=== PATIENT | male | born 1980 | race Caucasian/White ===

== ENCOUNTER 2016-04-13 00:15 | Emergency (ER) | payer OTHER ==
[~2016-04-13] VITALS: Ht 175.3 cm; Wt 61.4 kg
[~2016-04-13 00:15] MED LIST: HYDR-4003 PO; ONDA4TAB9 PO; TAMS0.4C98 PO
[2016-04-13 00:18] VITALS: BP 116/74; PULSE 82; RESP 16; O2SAT 97
--- NOTE | 2016-04-13 00:44 | ED.REPORT ---
HPI-General Illness Date of Service Apr 13, 2016 ED Provider: Dr. Frausto Pt is a 35 y/o male w/ a hx of asthma presenting to the ED c/o SOB onset 3 days ago. Pt c/o associated fever (102-103 F), nausea, cough, myalgias, nasal congestion, sore throat. Pt denies vomiting. 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 The patient smokes cigars daily. Nursing Notes Stated Complaint: SHORT OF BREATH Chief Complaint: General Complaint Nursing Notes Reviewed: Yes Allergies: Uncoded Allergies: PENICILLIN (Allergy, Severe, Anaphylaxis, 04/13/16) Scheduled Prednisone (PredniSONE) 20 Mg Tablet 60 MG PO DAILY Tamsulosin (Flomax) 0.4 Mg Capsule 0.4 MG PO DAILY Scheduled PRN Hydrocodone-Acetaminophen 5-325 mg (Hydrocodone-Acetaminophen 5-325 mg) 1 Each Tablet 1-2 TABLET PO Q4H PRN PRN For Pain Hydrocodone-Acetaminophen 5-325 mg (Hydrocodone-Acetaminophen 5-325 mg) 1 Each Tablet 1-2 TABLET PO Q4H PRN PRN For Pain Ondansetron ODT (Zofran ODT) 4 Mg Tablet 4 MG PO Q4H PRN PRN For Nausea General Time Seen by MD: 00:44 Chief Complaint Other (SOB) Hx Obtained From: Patient Arrived By: Walk-in Sudden in Onset?: No Onset Occurred: 3 days ago Symptom Duration: Since onset Quality: Aching (diffuse) Severity: Current: Mild Severity: Maximum: Mild Recent Healthcare: No recent doctor visit Similar Sx Previous: No Past Medical History Past Medical History Hx of kidney stones Asthma Past Surgical History denies Smoking History Current Every Day Smoker Social History Alcohol Use: "Social" Drug Use: THC Other Social History: Local resident Occupation no work, no school, lives with sister and her family Ambulatory Status Independent Review of Systems Full Review of Systems Constitutional: Reports: Chills, Fever Ears / Nose / Throat: Reports: Nasal congestion, Sore throat Respiratory: Reports: Non-productive cough, Shortness of breath, Wheezing Cardiovascular: Denies: Chest pain GI: Reports: Nausea, Denies: Abdominal pain, Vomiting Musculoskeletal: Reports: Myalgia Complete sys rev & neg: except as marked. Physical Exam Vital Signs Vital Signs Date Time Temp Pulse Resp B/P Pulse Ox O2 Delivery O2 Flow Rate FiO2 04/13/16 02:05 86 24 95 Room Air 04/13/16 01:24 65 22 96 Room Air 04/13/16 00:18 36.1 82 16 116/74 97 Room Air Initial VS: Reviewed, Vital signs normal Head / Eyes: Atraumatic, Normocephalic, PERRL Neck: Supple, Full range of motion Cardiovascular: Regular rate & rhythm, Heart sounds normal, Intact distal pulses Abdomen / GI: Soft, Non-tender Extremities: Vascular intact, Neuro intact, No swelling, No tenderness Skin: Warm, Dry, No cyanosis Neurologic: Alert, Oriented, Nonfocal Psychiatric: Mood/affect normal, Behavior normal, Normal thought content General/Constitutional: Awake, Alert, No acute distress, Cooperative, Not toxic appearing Appearance / Presentation: Positive: Ill appearing/not toxic Respiratory / Chest: Atraumatic, No respiratory distress, No retractions, No stridor, No chest tenderness, No chest wall deformity, No crepitus Wheezes bilaterally Loose cough Interpretation & Diagnostics X-Ray Chest Interpretation Chest Xray Interpretation: Changes of COPD View: Portable, 1 view Interpretation / Wet Read by: Wet read ED physician NL X-Ray Chest Findings: No infiltrate, No acute disease Re-Eval/Medical Decision Med Decision/Clinical Course 35-year-old smoker presents with asthma symptoms, five years since his last exacerbation. He is continuing to smoke the meantime, and works as a welder fitter gas. He does not observe precautions and is not infrequently inhaling metal smoke. He has moderate wheezes and onset appears to be the result of an influenza infection. No indication for antibiotics. Home with prednisone, albuterol puffer and spacer, and plan for follow-up with PCP. Smoking cessation strongly advised. Observation of job related precautions also strongly advised. Time of Eval: 01:46 Patient Status: Condition improved, Moderate relief Re-Evaluation/Progress Note: Pt rechecked. Wheezing decreased. Informed pt of plan for treatment. Pt understands and agrees with plan for treatment. F/U instructions and RTER warnings given. All questions addressed. Counseled Regarding: Diagnosis, Lab results, Need for follow-up, When/why to return to ED Discharge & Departure Primary Impression: Asthma exacerbation Additional Impressions: Chronic obstructive pulmonary disease COPD type: unspecified COPD Qualified Code: J44.9 - Chronic obstructive pulmonary disease, unspecified Influenza Disposition: Home Discharge Condition All VS Reviewed: Yes Condition: Stable Patient Instructions: Asthma (ED), Chronic Obstructive Pulmonary Disease (ED), Influenza (ED) Additional Instructions: You are developing fairly obvious changes in your lungs consistent with damage from smoking. It is critical that you stop smoking as soon as possible. It is also important that you observe all precautions at work, and avoid breathing metal smoke. Begin albuterol two puffs with spacer every four hours as needed for wheezing and cough. Begin prednisone three tablets daily for five days. Follow-up with your doctor in the office. Return if worsening despite treatment. [facility] ([facility]P) Scribe Attestation Portions of this note were transcribed by Mj Fernandez. I, Dr. Frausto personally performed the history, physical exam and medical decision-making; I reviewed and confirmed the accuracy of the information in the transcribed note. Signed by Matheus Correia, 04/13/16 - [id number] copies to: [facility] A[facility] CESPEDES Christopher W MD Apr 13, 2016 00:44 MJ FERNANDEZ Apr 13, 2016 00:45
[2016-04-13] MEDS ORDERED: Albuterol 2.5 mg/3 mL Inhalation Solution NEB ONE (01:00)
[2016-04-13] MEDS ORDERED: Albuterol-Ipratropium 3 mL Inhalation Solution NEB ONE (01:00)
[2016-04-13] MEDS ORDERED: predniSONE 20 mg Tablet PO ONE (01:00)
[2016-04-13] MEDS ORDERED: _Albuterol-HFA 60 Puff Inhaler INHALATION PRN (01:00)
[2016-04-13 01:24] VITALS: PULSE 65; RESP 22; O2SAT 96
[2016-04-13] MEDS ORDERED: PRE20 PO (01:41)
[2016-04-13 02:05] VITALS: PULSE 86; RESP 24; O2SAT 95
--- NOTE | 2016-04-13 09:16 | DRSVH ---
PROCEDURE: X-RAY CHEST, TWO VIEWS ([id number]) INDICATIONS: cough, asthma TECHNIQUE: 2 views of the chest were acquired. COMPARISON: [facility], CR, CHEST 2VW, 01/08/2014, 14:36. FINDINGS: Surgical changes and devices: None. Lungs and pleura: No pleural effusions or pneumothorax. Lungs are clear. Mediastinum: Mediastinal contours are normal. Heart size is normal. Bones and chest wall: No suspicious bony abnormalities. Soft tissues appear unremarkable. IMPRESSION: No acute cardiopulmonary disease. Dictated by: Lorenzo Ellison [facility] Interpreted: Jenna Dwyer MD on 04/13/2016 at 9:15 Transcribed by: SREEKANTH on 04/13/2016 at 9:15 Approved by: Jenna Dwyer MD, PhD on 04/13/2016 at 11:47
== END 2016-04-13 02:06 | disposition home or self-care (01) ==
LOC: SED 00:15
DX: J45.901 Unspecified asthma with (acute) exacerbation (principal); J44.9 Chronic obstructive pulmonary disease, unspecified; J10.1 Influenza due to other identified influenza virus with other respiratory manifestations; F17.290 Nicotine dependence, other tobacco product, uncomplicated; F12.10 Cannabis abuse, uncomplicated; Z88.0 Allergy status to penicillin
CPT/HCPCS: 71020; 99284; J7613; J7620

== ENCOUNTER 2016-06-18 22:00 | Emergency (ER) | payer OTHER ==
[~2016-06-18] VITALS: Ht 172.7 cm; Wt 61.4 kg
[~2016-06-18 22:00] MED LIST changes: +PRE20 PO
[2016-06-18 22:16] VITALS: BP 124/74; PULSE 79; RESP 16; O2SAT 97
--- NOTE | 2016-06-18 22:25 | ED.REPORT ---
HPI-Extremity Problem Upper Date of Service June 18, 2016 ED Provider: Nixon Payne MD Patient is a 35 year old male who presents to the ED complaining of left arm pain that began this afternoon. Patient reportedly tore his rotator cuff in 2015 while working and recently exacerbated the area this afternoon. Patient describes the pain as a shooting pressure. He denies any numbness or weakness. He denies taking any medication for the pain and reports that he is unable to take ibuprofen because it causes nausea. Patient does not currently see an client success specialist for his pain. Patient denies any other medical complaints at this time. Nursing Notes Stated Complaint: LEFT SHOULDER PAIN Chief Complaint: Extremity Trauma Nursing Notes Reviewed: Yes Allergies: Uncoded Allergies: PENICILLIN (Allergy, Severe, Anaphylaxis, 04/13/16) Scheduled Prednisone (PredniSONE) 20 Mg Tablet 60 MG PO DAILY Tamsulosin (Flomax) 0.4 Mg Capsule 0.4 MG PO DAILY Scheduled PRN Hydrocodone-Acetaminophen 5-325 mg (Hydrocodone-Acetaminophen 5-325 mg) 1 Each Tablet 1-2 TABLET PO Q4H PRN PRN For Pain Hydrocodone-Acetaminophen 5-325 mg (Hydrocodone-Acetaminophen 5-325 mg) 1 Each Tablet 1-2 TABLET PO Q4H PRN PRN For Pain Hydrocodone-Acetaminophen 5-325 mg (Hydrocodone-Acetaminophen 5-325 mg) 1 Each Tablet 1 TABLET PO Q4H PRN PRN For Pain Ondansetron ODT (Zofran ODT) 4 Mg Tablet 4 MG PO Q4H PRN PRN For Nausea General Time Seen by MD: 22:23 Chief Complaint Shoulder injury left Hx Obtained From: Patient Arrived By: Walk-in Onset Occurred: 9 - 12 hours ago Symptom Duration: Since onset Caused by: Accidental Context: Occurred at: Workplace Location: : Shoulder left Quality: Painful Severity: Current: Moderate Severity: Maximum: Moderate Associated with: Denies: Numb extremities, Unable to move joint Pertinent Negative: Pt denies other symptoms Exacerbated by: Range of motion Recent Healthcare: No recent doctor visit, No recent hospitalization Past Medical History Past Medical History Hx of kidney stones Asthma Past Surgical History Denies Smoking History Current Every Day Smoker Social History Alcohol Use: "Social" Drug Use: THC Other Social History: Good social support, Local resident Occupation no work, no school, lives with sister and her family Ambulatory Status Independent Review of Systems Musculoskeletal: Reports: Joint pain Neurologic: Denies: Change LOC, Numbness, Weakness Complete sys rev & neg: except as marked. Physical Exam Initial Vital Signs Vital Signs (First) Date Time Temp Pulse Resp B/P Pulse Ox O2 Delivery O2 Flow Rate FiO2 06/18/16 22:16 36.0 79 16 124/74 97 Room Air Initial VS: Reviewed Neck: Supple, Non-tender, Full range of motion Lower Extremities: Vascular intact, Neuro intact, No swelling, No tenderness Skin: Warm, Dry, No cyanosis Neurologic: Alert, Oriented, Nonfocal Psychiatric: Mood/affect normal, Behavior normal, Normal thought content General/Constitutional: Awake, Alert, No acute distress Respiratory / Chest: Atraumatic, Breath sounds NL, Breath sounds = bilat, No respiratory distress Cardiovascular: Heart rate NL, Regular rhythm, Heart sounds NL, No gallop, No murmurs, No rubs, Cap refill not delayed, Peripheral circulation NL, Pulses = bilaterally Upper Extremity / MS: Atraumatic, Full range of motion (Full abduct and full passive ROM ), No swelling, No deformity, Neurologic intact, Vascular intact ( good distal pulse) Left Shoulder: Positive: Tenderness present... (anterior and lateral aspect of shoulder) Re-Eval/Medical Decision Med Decision/Clinical Course Patient is a 35-year-old male with history of known left rotator cuff injury who presents with an exacerbation of his underlying left shoulder pain in the setting of working on his car. Examination reveals no evidence of neurovascular injury. There is no evidence of septic arthritis. There is no evidence of fracture or dislocation. I do not feel that imaging studies are indicated. Patient states that he is unable to take ibuprofen because it upsets his stomach. Here in the emergency department his pain was treated with oral oxycodone and intramuscular Toradol. He is prescribed a limited supply of [place] for pain. He has been referred to orthopedic surgery as he was previously offered steroid injections but had declined. He states that he is now interested in having steroid injections. I feel that the patient is appropriate for outpatient management. Prior to discharge follow-up and return precautions were reviewed in detail with the patient who verbalized understanding and agreement with the plan. The patient was discharged in stable condition. Re-Evaluation/Progress : Time of Eval: 22:26 Patient Status: Condition improved Re-Evaluation/Progress Note: Patient is informed of his results and diagnosis. All of the patient's questions are addressed. He understands and agrees with treatment plan. Counseled Regarding: Diagnosis, Need for follow-up, When/why to return to ED Discharge & Departure Impression: Primary Impression: Left shoulder pain Chronicity: chronic Qualified Code: M25.512 - Pain in left shoulder Additional Impression: Rotator cuff injury Encounter type: initial encounter Laterality: left Qualified Code: S46.002A - Unspecified injury of muscle(s) and tendon(s) of the rotator cuff of left shoulder, initial encounter Disposition: Home Discharge Condition All VS Reviewed: Yes Condition: Improved Patient Instructions: Rotator Cuff Injury (ED) Additional Instructions: Thank you for seeking care at the emergency room. Our primary goal today in the ED was to evaluate you for any life-threatening conditions. Your evaluation was reassuring. Take 600mg of ibuprofen every 8 hours as needed for pain. You should follow-up with the referred orthopedic surgeon and consider the cortisone shot. You should return to the ED immediately if you develop numbness, weakness, worsening pain or any other concerning signs or symptoms. Thank you for letting us partake in your care today. Referrals: [facility] (PCP) Barry Diaz MDibangelique Attestation Portions of this note were transcribed by Brie Tirado. I, Dr. Payne personally performed the history, physical exam and medical decision-making; I reviewed and confirmed the accuracy of the information in the transcribed note. Signed by: Matheus Lopez, 06/18/16 [id number]. copies to: [facility] Beck O MD June 18, 2016 22:25 BRIE TIRADO June 18, 2016 22:32
[2016-06-18] MEDS ORDERED: HYDR-4003 PO (22:34)
[2016-06-18 23:02] VITALS: BP 122/70; PULSE 70; RESP 14; O2SAT 98
== END 2016-06-18 23:03 | disposition home or self-care (01) ==
LOC: SED 22:00
DX: S46.092A Other injury of muscle(s) and tendon(s) of the rotator cuff of left shoulder, initial encounter (principal); M25.512 Pain in left shoulder; X58.XXXA Exposure to other specified factors, initial encounter; Y93.89 Activity, other specified; Y92.89 Other specified places as the place of occurrence of the external cause; Y99.0 Civilian activity done for income or pay; F17.200 Nicotine dependence, unspecified, uncomplicated; Z88.0 Allergy status to penicillin
CPT/HCPCS: 96372; 99283; J1885

== ENCOUNTER 2016-07-30 20:38 | Emergency (ER) | payer OTHER ==
[~2016-07-30] VITALS: Ht 175.3 cm; Wt 59.1 kg
[2016-07-30 20:43] VITALS: BP 126/85; RESP 12; O2SAT 97
--- NOTE | 2016-07-30 21:54 | ED.REPORT ---
HPI-Ear Pain/Problem/FB Date of Service Jul 30, 2016 ED Provider: Nixon Payne MD The patient is a 35 year old male who presents to the ED c/o left ear pain that began at 1400 today. Associated symptoms include sore throat and sinus pressure. Patient reports a history of middle ear problems and previous tympanic membrane ruptures. He reports that he feels like the pressure is building up and like his eardrum is going to burst. Nursing Notes Stated Complaint: EAR ACHE Chief Complaint: ENT & Mouth Nursing Notes Reviewed: Yes Allergies: Coded Allergies: Penicillins (Verified Allergy, Severe, anaphylaxis, 07/30/16) Scheduled Levofloxacin (Levofloxacin) 500 Mg Tablet 500 MG PO DAILY Prednisone (PredniSONE) 20 Mg Tablet 60 MG PO DAILY Pseudoephedrine (Pseudoephedrine) 30 Mg/5 Ml Liquid 30 MG PO BID Tamsulosin (Flomax) 0.4 Mg Capsule 0.4 MG PO DAILY Scheduled PRN Hydrocodone-Acetaminophen 5-325 mg (Hydrocodone-Acetaminophen 5-325 mg) 1 Each Tablet 1-2 TABLET PO Q4H PRN PRN For Pain Hydrocodone-Acetaminophen 5-325 mg (Hydrocodone-Acetaminophen 5-325 mg) 1 Each Tablet 1-2 TABLET PO Q4H PRN PRN For Pain Hydrocodone-Acetaminophen 5-325 mg (Hydrocodone-Acetaminophen 5-325 mg) 1 Each Tablet 1 TABLET PO Q4H PRN PRN For Pain Ondansetron ODT (Zofran ODT) 4 Mg Tablet 4 MG PO Q4H PRN PRN For Nausea General Time Seen by MD: 21:15 Chief Complaint Ear problem left Hx Obtained From: Patient Arrived By: Walk-in Onset Occurred: 5 - 8 hours ago Symptom Duration: Since onset Location: : Inner ear Quality: Painful Severity: Current: Moderate Associated with: Reports: Sore throat Recent Healthcare: No recent doctor visit, No recent hospitalization Similar Sx Previous: Yes Past Medical History Past Medical History Hx of kidney stones Asthma Past Surgical History Denies Smoking History Current Every Day Smoker Social History Alcohol Use: "Social" Drug Use: THC Other Social History: Good social support, Local resident Occupation no work, no school, lives with sister and her family Ambulatory Status Independent Review of Systems Constitutional: Reports: Fever, Denies: Chills Ears / Nose / Throat: Reports: Earache left, Denies: Earache right, Hearing loss left, Nasal congestion Complete sys rev & neg: except as marked. Physical Exam Initial Vital Signs Vital Signs (First) Date Time Temp Pulse Resp B/P Pulse Ox O2 Delivery O2 Flow Rate FiO2 07/30/16 20:43 37.7 73 12 126/85 97 Room Air Initial VS: Reviewed General/Constitutional: Awake, Alert, Cooperative ENT: Pharynx NL Left Ear / Mastoid: Positive: Tympanic membrane bulging (erythematous ) right TM is normal Head / Eyes: Atraumatic, Normocephalic, PERRL, EOMI Neck: Atraumatic, Supple Respiratory / Chest: Atraumatic, Breath sounds NL, Breath sounds = bilat, No respiratory distress Cardiovascular: Heart rate NL, Regular rhythm, Heart sounds NL Skin: Atraumatic, Color NL, Warm, Dry Neurologic: Oriented X3, Speech NL, No motor deficits Upper Extremity / MS: Atraumatic, Inspection NL, No deformity Re-Eval/Medical Decision Med Decision/Clinical Course The patient is a 35 year old male who presents to the ED c/o left ear pain that began at 1400 today. Associated symptoms include sore throat and sinus pressure. Patient reports a history of middle ear problems and previous tympanic membrane ruptures. He reports that he feels like the pressure is building up and like his eardrum is going to burst. Here in the emergency department the patient is afebrile stable vital signs and examination as above. Presentation seems most consistent with otitis media. Given patient's penicillin allergies he was treated with levofloxacin. He was given 1 dose here in the emergency department and prescription for remainder of the course of antibiotics. He also has quite a bit of sinus pressure and ear pain. He was treated with Sudafed as well as Toradol with improvement in his symptoms. Patient was discharged with additional Sudafed and plan to take ibuprofen as well as antibiotics. Given his history of recurrent tympanic membrane rupture and sinus problems he has been referred to ENT. At this time, I feel that he is appropriate for discharge. Prior to discharge follow-up and return precautions were reviewed in detail with the patient who verbalized understanding and agreement with the plan. The patient was discharged in stable condition. Re-Evaluation/Progress : Time of Eval: 22:52 Re-Evaluation/Progress Note: Pt started on avarofloxacin at the ED. Counseled Regarding: Diagnosis, Lab results, Need for follow-up, When/why to return to ED Discharge & Departure Primary Impression: Otitis media Otitis media type: unspecified Laterality: left Chronicity: unspecified Qualified Code: H66.92 - Otitis media, unspecified, left ear Additional Impressions: Ear pain Laterality: left Qualified Code: H92.02 - Otalgia, left ear Sinusitis Sinusitis location: unspecified location Chronicity: acute Recurrence: non -recurrent Qualified Code: J01.90 - Acute sinusitis, unspecified Disposition: Home Discharge Condition All VS Reviewed: Yes Condition: Stable Patient Instructions: Otitis Media (ED) Additional Instructions: I am sending you home with antibiotics for infection, and Pseudafed which will help with the pressure in the ear. Take Ibuprofen 600 mg 3x/day as needed for pain. Follow up with your primary care physician and I have attached a referral for an ear doctor. Return to the Emergency Department if you experience any new or worsening symptoms. Thank you for entrusting us with your care today. Referrals: [facility] (PCP) Ac Jett MD Scribe Attestation Portion of this note were transcribed by Jenifer Ghotra. I, Dr. Payne, personally performed the history, physical exam, and medical decision-making: I reviewed and confirmed the accuracy for the information in the transcribed note. Signed by: sintia Tierney, 07/30/16 [id number] copies to: cA Jett MD; [facility] Nixon Payne MD Jul 30, 2016 21:54 Jenifer Ghotra Jul 30, 2016 22:49
[2016-07-30] MEDS ORDERED: PSEU30SY2 PO (22:51)
[2016-07-30] MEDS ORDERED: LEVO500T79 PO (22:52)
[2016-07-30] MEDS ORDERED: levoFLOXacin 500 mg Tablet PO ONE (22:55)
[2016-07-30 23:30] VITALS: BP 119/67; PULSE 72; RESP 16; O2SAT 97
== END 2016-07-30 23:31 | disposition home or self-care (01) ==
LOC: SED 20:38
DX: H66.92 Otitis media, unspecified, left ear (principal); J01.90 Acute sinusitis, unspecified; J02.9 Acute pharyngitis, unspecified; J45.909 Unspecified asthma, uncomplicated; F17.200 Nicotine dependence, unspecified, uncomplicated; Z86.69 Personal history of other diseases of the nervous system and sense organs; Z88.0 Allergy status to penicillin
CPT/HCPCS: 96372; 99283; J1885